=== PATIENT | male | born 1995 | race Caucasian/White ===

== ENCOUNTER 2017-07-21 08:26 | Emergency (ER) | payer BC ==
[2017-07-21 09:58] LABS: Bilirubin Negative (Negative); Blood, Urine Large (Negative); Glucose, Urine (Dipstick) Negative (Negative); Ketone, Urine Negative (Negative); Nitrite Negative (Negative); Protein, Urine (Dipstick) Negative (Neg-Trace); Urobilinogen 0.2 mg/dL (0.2-1.0)
[2017-07-21 10:00] LABS: Bacteria/HPF None Seen HPF (None Seen); Hyaline Casts/LPF 0-3 HYALINE CAST LPF (0-3 Hyaline); RBC/HPF GREATER THAN 50-TNTC HPF (0-3); Squamous Epithelial None Seen HPF (0-3); WBC/HPF 0-3 HPF (0-3)
[2017-07-21 10:05] LABS: #Basophils 0.1 thou/uL (0.0-0.2); #Eosinphils 0.1 thou/uL (0.0-0.7); #Lymphocytes 1.5 thou/uL (1.20-3.40); #Monocytes 0.5 thou/uL (0.11-0.59); #Neutrophils 5.9 thou/uL (1.40-6.50); %Basophils 0.8 % (0.0-1.0); %Eosinophils 1.4 % (0.0-10.0); %Lymphocytes 19.1 % (21.0-51.0); %Monocytes 5.5 % (0.0-10.0); Hematocrit 49.9 % (42.0-52.0); Mean Platelet Volume 9.9 fL (7.4-10.4); Red Blood Cell (RBC) Count 5.21 mill/uL (4.70-6.10); White Blood Cell (WBC) Count 8.1 thou/uL (4.8-10.8)
[2017-07-21 10:20] LABS: ALT (SGPT) 16 U/L (8-55); AST (SGOT) 17 U/L (5-34); Alkaline Phosphatase 82 U/L (40-150); Anion Gap 12 mmol/L (10-20); BUN (Urea Nitrogen) 17 mg/dL (8.9-20.6); Bilirubin, Total 0.3 mg/dL (0.2-1.2); Calc. Creatinine Clearance 0 mL/min (70-130); Calcium 9.5 mg/dL (7.8-10.44); Carbon Dioxide 27 mmol/L (22-29); Chloride 103 mmol/L (98-107); Estimated GFR-MDRD Greater than 90; Globulin 2.9 g/dL (2.4-3.5); Lipase 24 U/L (8-78); Protein, Total 7.4 g/dL (6.0-8.3)
--- NOTE | 2017-07-21 11:14 | CT ---
CT OF ABDOMEN AND PELVIS: Date: 07-21-17 History: Nausea, right sided abdominal pain. Right flank pain. Technique: Serial axial CT imaging obtained at 5 mm intervals from lung bases through pubic symphysis without contrast. Coronal reformatted imaging obtained. FINDINGS: The lack of contrast limits assessment of the viscera, bowel vascular structures and for lymphadenopa thy. The imaged lung bases are unremarkable with no free intraperitoneal air or fluid noted. The liver, spleen, gallbladder, pancreas, and adrenal glands appear grossly unremarkable. There are numerous punctate renal calculi bilaterally. Three such punctate calcifications are seen wi thin the left kidney and five such calcifications are seen within the right kidney. No significant hy dronephrosis is identified on either side. No evidence for calcification seen along the course of either ureter. There is no evidence for hydrou reter or obstructive uropathy on either side. There is significant stool within a slightly expanded rectum. Limited assessment of the bowel appears grossly unremarkable. Appendix appears grossly unremarkable, noted just inferior to the cecal tip. No evidence for an acute osseous abnormality. IMPRESSION: Numerous punctate/tiny nonobstructing bilateral renal calculi. No evidence for obstructive uropathy i s appreciated on either side. POS: [facility]
== END 2017-07-21 12:13 | disposition home or self-care (01) ==
LOC: ERS 08:26
DX: N20.0 Calculus of kidney (principal)
CPT/HCPCS: 74176; 80053; 81003; 81015; 83690; 85025